=== PATIENT | male | born 1970 | race Caucasian/White ===

== ENCOUNTER 2017-02-26 11:18 | Emergency (ER) | payer SELFPAY ==
[~2017-02-26] VITALS: Ht 177.8 cm; Wt 85.0 kg
[2017-02-26] MEDS ORDERED: TETRACAINE 0.5% OPHTH DROPS 4ML OP ONE (11:45)
[2017-02-26] MEDS ORDERED: FLUORESCEIN SODIUM 1MG/STRIP OP ONE (11:45)
[2017-02-26 12:28] VITALS: BP 110/80
== END 2017-02-26 15:45 | disposition home or self-care (01) ==
LOC: ER 12:22
DX: H10.211 Acute toxic conjunctivitis, right eye (principal)
CPT/HCPCS: 99283; J7030